=== PATIENT | female | born 1970 | race Caucasian/White ===

== ENCOUNTER 2019-07-09 12:54 | Day surgery (SDC) | payer OTHER, SELFPAY ==
--- NOTE | 2019-07-09 | PATH_ITS ---
[facility] Accession Number: [id number] . 01 Material submitted: . PART A: colon - ASCENDING COLON POLYP 6MM PART B: colon - SIGMOID POLYP 2MM . 02 Diagnosis: A. Ascending Colon, Polyp 6 mm, Biopsy: Tubular adenoma. . B. Sigmoid Colon, Polyp 2 mm, Biopsy: Hyperplastic polyp. MRV 07/12/2019 1015 Local . 02 Electronically signed: . Leda Gamez MD, Pathologist NPI- [id number] . 01 Gross description: . Part A: ASCENDING COLON POLYP 6MM: Received in formalin is 1 fragment(s) of delaney, soft tissue measuring 0.5 x 0.4 x 0.3 cm submitted entirely in 1 cassette(s) Part B: SIGMOID POLYP 2MM: Received in formalin is 1 fragment(s) of delaney, soft tissue measuring 0.3 x 0.2 x 0.2 cm submitted entirely in 1 cassette(s) [place] [place]10/[place] 0033 Local . 02 Pathologist provided ICD-10: D12.2, K63.5 . 02 CPT . 422557, 366387 Performed at: 01 [facility] [address] [facility], [place], [place] [id number] MD Gaudencio Gutierrez MD Phone: [phone] Performed at: 02 [facility] [address] [place], [place] [id number] MD Leda Gamez MD Phone: [phone]
--- NOTE | 2019-07-09 07:36 | PM.HP.1 ---
History of Present Illness History of Present Illness Date Patient Seen: 07/09/19 Time Patient Seen: 13:40 Chief complaint: 25010 SCREENING COLONOSCOPY Narrative: 48 Years Old Female comes in today for consideration of a screening colonoscopy. There have been no lower GI symptoms suggesting disease such as change in bowel habits, bleeding, abdominal pain or anemia. Possible family history of colon cancer in her maternal grandfather, fatal. Overall health issues have been stable, including no major cardiac events for at least 6 weeks. Current Medications (verified): 1) Probiotic Oral Capsule (Probiotic Product) .... one daily 2) Multi-Vitamin/minerals Oral Tablet (Multiple Vitamins-Minerals) .... take one daily 3) Levothyroxine Sodium 50 Mcg Oral Tablet (Levothyroxine Sodium) .... Take 1 tablet by mouth once a day for thyroid replacement. 4) Sumatriptan Succinate 100 Mg Oral Tablet (Sumatriptan Succinate) .... Take one tablet at onset of migraine headache. May repeat in 2 hours. Maximum 2 doses in 24 hours. Allergies (verified): No Known Drug Allergies Past History Reviewed: Past medical, surgical, family and social histories (including risk factors) reviewed and attested, and no changes required Past Medical History: Reviewed history from 04/02/2019 and no changes required: Hypothyroidism migraines Past Surgical History: Reviewed history from 04/02/2019 and no changes required: Hysterectomy 2014 Tonsillectomy 1975 Breast reduction & abdominoplasty 2019 Vein stripping in legs 2007 Family History: Maternal GF: colon cancer? (fatal) Father: alcohol and/or substance abuse Mother: Diabetes, HTN, Hyperlipidemia Siblings: 2 living 1 ( in a fire) Social History: Reviewed history from 04/02/2019 and no changes required: Marital Status: Children: 3 Occupation: [employer] @ [employer] Household Members: (Chon) Education: m. ed Meds Home Medications and Allergies Home Medications Medication Instructions Recorded Confirmed Type levothyroxine [Synthroid] 50 mcg PO DAILY 07/09/19 07/09/19 History Allergies Allergy/AdvReac Type Severity Reaction Status Date / Time No Known Drug Allergies Allergy Verified 07/09/19 13:08 Exam Narrative Exam Narrative: General: Alert and oriented, appearing stated age and in no acute distress. Head: Head normocephalic/atraumatic. Neck: Neck soft and supple, no lymphadenopathy. Lungs: Clear to auscultation bilaterally, no wheezes, rhonchi or rales. Heart: Normal S1 and S2 with regular rate and rhythm, no audible murmurs, rubs or gallops. Abdomen: Soft, non-tender, non-distended, no organomegaly. Possitive bowel sounds. Msk: no deformity noted with normal posture and gait, Neurologic: no focal deficits, CN II-XII grossly intact with normal reflexes, coordination, sensation, muscle strength and tone, Skin: intact without suspicious lesions or rashes, Psych: Alert and oriented x 3. Assessment & Plan Assessment & Plan narrative: Problem # 1: Family history of cancer of colon, possible Problem # 2: Screening for colon cancer 1. Colonoscopy The nature and character of the procedure as well as anticipated results were discussed. The possibility of not completing the procedure was also discussed. Possible complications including aspiration pneumonia, bleeding, perforation and reaction to medications either for sedation or preparation and missed lesions were discussed. Questions were answered and proceeding to the colonoscopy was elected. Informed consent signed.
--- NOTE | 2019-07-09 07:41 | PM.OP.ENDO ---
Operative Date/Time/Diagnoses Date of procedure: 07/09/19 Time of procedure: 13:51 Pre-op diagnosis: 1. Possible family history of colon cancer 2. Screening for colon cancer Post-op diagnosis: other (1. Ascending polyp x 1, 6 mm, lifted with methylene blue, removed with cold snare, 2. Sigmoid polyp x 1, 2 mm removed with cold biopsy forceps) Procedure & Clinicians Study performed: Colonoscopy Same procedure as scheduled: Yes Indications: 1. Possible family history of colon cancer 2. Screening for colon cancer Surgeon: Mere Wiggins Procedure Notes SCOAP/Timeout: 13:48 Procedure in detail: ENDOSCOPIST: Mere Wiggins MD Sedation RN: Vasyl Zepeda RN Sedation start time: 13:51 Sedation end time: 14:21 PROCEDURE: Colonoscopy with cold snare and cold biopsy, methylene blue lift INDICATIONS: 1. Possible family history of colon cancer 2. Screening for colon cancer MEDICATION: Levsin 0.125 mg sublingual, incremental doses of Versed and fentanyl until appropriate level sedation achieved. ASA CLASS: 1 CECAL WITHDRAWAL TIME: 15 minutes COMPLICATIONS: None. EXTENT OF PROCEDURE: Cecum. QUALITY OF PREP: Good with portions of liquid stool. PROCEDURE: Prior to insertion of the colonoscope, a digital rectal examination was accomplished with circumferential palpation of the distal rectal mucosa without significant findings being noted. The high-definition pediatric colonoscope was passed into the rectum in the usual fashion and advanced over to the cecum without difficulty. The ileocecal valve, appendiceal stoma, and medial wall all could be inspected and no abnormalities were seen. ASCENDING COLON: As the colonoscope was withdrawn, a 6 mm sessile polyp was seen, lifted with methylene blue and removed with cold snare. Excellent hemostasis noted. Otherwise, after care was taken to expose and inspect the haustral folds, no further abnormalities were seen. HEPATIC FLEXURE: Normal no polyps, diverticula or other abnormalities. TRANSVERSE COLON: Normal no polyps, diverticula or other abnormalities. DESCENDING COLON: Mild diverticulosis, otherwise, normal, no polyps, or other abnormalities. SIGMOID COLON: 2 mm polyp removed with cold biopsy forceps, excellent hemostasis. Otherwise, mild diverticulosis and no other abnormalities. RECTUM: Normal. J maneuver was produced. There was no significant perianal disease. The J maneuver was broken. The remainder of the rectum was inspected and there was no external hemorrhoid disease. The scope was withdrawn. IMPRESSION: 1. Ascending polyp x1, 6 mm, lifted with methylene blue removed with cold snare 2. Sigmoid polyp x1, 2 mm, removed with cold biopsy forceps 3. Left-sided diverticulosis, mild PLAN: 1. Follow-up in clinic status post pathology results. The possibility of a missed lesion including a malignancy has been discussed with the patient previously. Potential alarm symptoms have been discussed and should be reported immediately. Scope withdrawal time: 15 minutes Sedation minutes: 32 Findings: polyp Specimen(s): other Complications: none Impression: As above. Post-procedure Recommendations: Will call with biopsy results Follow up: weeks (2) Disposition: PACU
[2019-07-09 13:13] VITALS: BP 117/76; PULSE 76; RESP 18; TEMP 36.3; O2SAT 100
[2019-07-09 13:16] VITALS: BMI 46.5
[2019-07-09] MEDS: SODIUM CHLORIDE 0.9% 1,000 ML 200 ML IV (13:42)
[2019-07-09 14:25] VITALS: BP 106/70; PULSE 70; RESP 16; TEMP 34.4; O2SAT 98
[2019-07-09] MEDS: fentaNYL 250 MCG/5 ML INJ IV (14:26)
[2019-07-09] MEDS: ONDANSETRON 4 MG/2 ML INJ IV (14:26)
[2019-07-09] MEDS: MIDAZOLAM 5 MG/5 ML VIAL IV (14:27)
[2019-07-09] MEDS: METHYLENE BLUE 50 MG/10 ML VIAL INJ (14:27)
== END 2019-07-09 14:54 | disposition home or self-care (01) ==
PROVIDERS: PCP Student in an Organized Health Care Education/Training Program; Visit Provider Student in an Organized Health Care Education/Training Program
PROC: 0DJD8ZZ Inspection of Lower Intestinal Tract, Via Natural or Artificial Opening Endoscopic (ICD-10-PCS; CPT 45378; principal; 2019-07-09 14:00)
DX: Z12.11 Encounter for screening for malignant neoplasm of colon (principal); E03.9 Hypothyroidism, unspecified; D12.2 Benign neoplasm of ascending colon
CPT/HCPCS: 45381; 45385; 45380; J2250; J2405; J3010; Q9968

== ENCOUNTER → 2020-01-26 17:10 | Outpatient (CLI) | payer BC, SELFPAY ==
--- NOTE | 2020-01-26 17:39 | DI.MG.S_ITS ---
BILATERAL DIGITAL SCREENING MAMMOGRAM 3D/2D WITH CAD: 01/26/2020 CLINICAL: Routine screening. Comparison is made to exams dated: 07/23/2018 mammogram - [facility] and 09/09/2016 mammogram - [facility]. The tissue of both breasts is heterogeneously dense. This may lower the sensitivity of mammography. Current study was also evaluated with a Computer Aided Detection (CAD) system. No significant masses, calcifications, or other findings are seen in either breast. Interval bilateral breast reduction. IMPRESSION: NEGATIVE There is no mammographic evidence of malignancy. A 1 year screening mammogram is recommended. This exam was interpreted at Station ID: [id number]. NOTE: For mammograms, a report in lay terms will be sent to the patient. Approximately 15% of breast malignancies will not be visualized mammographically. In the management of a palpable breast mass, a negative mammogram must not discourage biopsy of a clinically suspicious lesion. Electronically Signed By: Suman Motley M.D. slc/:01/27/2020 09:40:48 copy to: James coreas, ph: [phone] letter sent: Normal Exam ACR BI-RADS Category 1: Negative 3341F
== END ==
PROVIDERS: PCP Student in an Organized Health Care Education/Training Program; Referring Provider Student in an Organized Health Care Education/Training Program; Visit Provider Student in an Organized Health Care Education/Training Program
DX: Z12.31 Encounter for screening mammogram for malignant neoplasm of breast (principal)
CPT/HCPCS: 77063; 77067

== ENCOUNTER → 2021-02-03 15:05 | Outpatient (CLI) | payer BC, SELFPAY ==
--- NOTE | 2021-02-03 | DI.MG.S_ITS ---
BILATERAL DIGITAL SCREENING MAMMOGRAM 3D/2D WITH CAD: 02/03/2021 CLINICAL: Routine screening. Comparison is made to exams dated: 01/26/2020 mammogram - [facility], 07/23/2018 mammogram - [facility], and 09/09/2016 mammogram - [facility]. The tissue of both breasts is heterogeneously dense. This may lower the sensitivity of mammography. Current study was also evaluated with a Computer Aided Detection (CAD) system. No significant masses, calcifications, or other findings are seen in either breast. There has been no significant interval change. IMPRESSION: NEGATIVE There is no mammographic evidence of malignancy. A 1 year screening mammogram is recommended. This exam was interpreted at Station ID: [id number]. NOTE: For mammograms, a report in lay terms will be sent to the patient. Approximately 15% of breast malignancies will not be visualized mammographically. In the management of a palpable breast mass, a negative mammogram must not discourage biopsy of a clinically suspicious lesion. Electronically Signed By: Steve Whitt acr/jose carlos:02/05/2021 08:21:18 copy to: James coreas, ph: [phone] letter sent: Normal Exam ACR BI-RADS Category 1: Negative 3341F
== END ==
PROVIDERS: PCP Student in an Organized Health Care Education/Training Program; Referring Provider Family Medicine; Visit Provider Family Medicine
DX: Z12.31 Encounter for screening mammogram for malignant neoplasm of breast (principal)
CPT/HCPCS: 77063; 77067

== ENCOUNTER → 2021-10-30 07:15 | Outpatient (CLI) | payer BC, SELFPAY | PROVIDERS: PCP Student in an Organized Health Care Education/Training Program; Visit Provider Physician Assistant | DX: R30.0 Dysuria (principal) | CPT/HCPCS: 87077; 87086; 87186 ==

== ENCOUNTER → 2022-06-08 08:26 | Outpatient (CLI) | payer BC, SELFPAY ==
--- NOTE | 2022-06-08 08:27 | DI.MG.S_ITS ---
BILATERAL DIGITAL SCREENING MAMMOGRAM 3D/2D WITH CAD: 06/08/2022 CLINICAL: Routine screening. Comparison is made to exams dated: 02/03/2021 mammogram, 01/26/2020 mammogram - [facility], and 07/23/2018 mammogram - [facility]. Both breasts are heterogeneously dense, which may obscure small masses (category c / 51-75% glandular tissue). Current study was also evaluated with a Computer Aided Detection (CAD) system. No significant masses, calcifications, or other findings are seen in either breast. There has been no significant interval change. IMPRESSION: NEGATIVE There is no mammographic evidence of malignancy. A 1 year screening mammogram is recommended. Based on the Tyrer Cuzick model (a risk assessment model) the patient's lifetime risk is 8.2% and her 10 year risk is 2.2%. According to the ACR, ACS, and NCCN guidelines, an annual breast MRI exam along with mammogram is recommended if the patient's lifetime risk is 20% or greater. This exam was interpreted at Station ID: [id number]. NOTE: For mammograms, a report in lay terms will be sent to the patient. Approximately 15% of breast malignancies will not be visualized mammographically. In the management of a palpable breast mass, a negative mammogram must not discourage biopsy of a clinically suspicious lesion. Electronically Signed By: Reji pandey/jose carlos:06/10/2022 09:49:19 copy to: James coreas, ph: [phone] letter sent: Normal Exam ACR BI-RADS Category 1: Negative 3341F
== END ==
PROVIDERS: PCP Family Medicine; Referring Provider Family Medicine; Visit Provider Family Medicine
DX: Z12.31 Encounter for screening mammogram for malignant neoplasm of breast (principal)
CPT/HCPCS: 77063; 77067

== ENCOUNTER → 2023-07-22 15:11 | Outpatient (CLI) | payer BC, SELFPAY ==
--- NOTE | 2023-07-22 | DI.MG.S_ITS ---
BILATERAL DIGITAL SCREENING MAMMOGRAM 3D/2D WITH CAD: 07/22/2023 CLINICAL: Routine screening. Comparison is made to exams dated: 06/08/2022 mammogram, 02/03/2021 mammogram, and 01/26/2020 mammogram - [facility]. Both breasts are heterogeneously dense, which may obscure small masses (category c / 51-75% glandular tissue). Current study was also evaluated with a Computer Aided Detection (CAD) system. No significant masses, calcifications, or other findings are seen in either breast. There has been no significant interval change. IMPRESSION: NEGATIVE There is no mammographic evidence of malignancy. A 1 year screening mammogram is recommended. Based on the Tyrer Cuzick model (a risk assessment model) the patient's lifetime risk is 8.1% and her 10 year risk is 2.3%. According to the ACR, ACS, and NCCN guidelines, an annual breast MRI exam along with mammogram is recommended if the patient's lifetime risk is 20% or greater. This exam was interpreted at Station ID: [id number]. NOTE: For mammograms, a report in lay terms will be sent to the patient. Approximately 15% of breast malignancies will not be visualized mammographically. In the management of a palpable breast mass, a negative mammogram must not discourage biopsy of a clinically suspicious lesion. Electronically Signed By: Velia mccann/jose carlos:07/23/2023 09:04:07 copy to: James coreas, ph: [phone] letter sent: Normal Exam ACR BI-RADS Category 1: Negative 3341F
== END ==
PROVIDERS: PCP Family Medicine; Referring Provider Family Medicine; Visit Provider Family Medicine
DX: Z12.31 Encounter for screening mammogram for malignant neoplasm of breast (principal)
CPT/HCPCS: 77063; 77067

== ENCOUNTER → 2024-09-20 16:04 | Outpatient (CLI) | payer BC, SELFPAY ==
--- NOTE | 2024-09-20 16:05 | DI.MG.S_ITS ---
MM screening mammo BI: 09/20/2024. BI-RADS: 1 CLINICAL: 54-year old female for bilateral screening mammogram. Tyrer-Cuzick lifetime risk of 3.6%. No personal or first-degree family history of breast cancer. The patient is status-post reduction mammoplasty. PRIOR EXAMS 07/22/2023, 06/08/2022, 02/03/2021, 01/26/2020. MAMMOGRAPHY TECHNIQUE: 2D and 3D (tomosynthesis) digital mammographic views obtained, with additional images as needed for full coverage. Current study was also evaluated with a Computer Aided Detection (CAD) system. DENSITY C. The breasts are heterogeneously dense, which may obscure small masses. MAMMOGRAPHY FINDINGS Bilateral: No suspicious mass, asymmetry, microcalcification, or other abnormality seen. IMPRESSION: * No evidence of malignancy. RECOMMENDATIONS Bilateral * Annual screening mammography. OVERALL ASSESSMENT CATEGORY BI-RADS-1: Negative. The [employer] recommends annual screening mammography beginning at age 40 for women with average risk of breast cancer. ELECTRONICALLY SIGNED: Daniel Moreau M.D. on 09/21/2024 at 10:14:23 AM Interpreting Station ID: [id number]
== END ==
LOC: MAMMO 16:05
PROVIDERS: PCP Family Medicine; Referring Provider Family Medicine; Visit Provider Family Medicine
DX: Z12.31 Encounter for screening mammogram for malignant neoplasm of breast (principal); R92.333 Mammographic heterogeneous density, bilateral breasts
CPT/HCPCS: 77063; 77067

== ENCOUNTER → 2025-01-08 13:11 | Outpatient (CLI) | payer BC, SELFPAY | PROVIDERS: PCP Family Medicine; Visit Provider Nurse Practitioner Family | DX: R30.0 Dysuria (principal); N94.9 Unspecified condition associated with female genital organs and menstrual cycle | CPT/HCPCS: 87077; 87086; 87186; 87210 ==